=== PATIENT | female | born 1980 | race Caucasian/White ===

== ENCOUNTER → 2024-11-05 08:35 | Outpatient (REF) | payer BC, SELFPAY | LOC: HWRAD 08:35 | PROVIDERS: ATTENDING PHYSICIAN Obstetrics & Gynecology Gynecology | DX: N93.9 Abnormal uterine and vaginal bleeding, unspecified (principal) | CPT/HCPCS: 76830; 76856 ==

== ENCOUNTER → 2025-04-29 07:32 | Outpatient (REF) | payer BC, SELFPAY | LOC: RAD 07:32 | PROVIDERS: ATTENDING PHYSICIAN Internal Medicine Gastroenterology; FAMILY PHYSICIAN Hospitalist | DX: R10.30 Lower abdominal pain, unspecified (principal); R19.4 Change in bowel habit; K62.89 Other specified diseases of anus and rectum; R14.0 Abdominal distension (gaseous) | CPT/HCPCS: 74177; Q9967 ==

== ENCOUNTER 2025-05-09 06:28 | Day surgery (SDC) | payer BC, SELFPAY | END 2025-05-09 15:21 | disposition home or self-care (01) | LOC: GI 06:28 | PROVIDERS: ATTENDING PHYSICIAN Internal Medicine Gastroenterology; FAMILY PHYSICIAN Hospitalist | DX: K57.30 Diverticulosis of large intestine without perforation or abscess without bleeding (principal); R19.4 Change in bowel habit | CPT/HCPCS: 45378 ==

== ENCOUNTER → 2025-06-08 19:03 | Outpatient (REF) | payer BC, SELFPAY | LOC: WDC 19:03 | PROVIDERS: ATTENDING PHYSICIAN Obstetrics & Gynecology Gynecology; FAMILY PHYSICIAN Hospitalist | DX: Z12.31 Encounter for screening mammogram for malignant neoplasm of breast (principal) | CPT/HCPCS: 77063; 77067 ==